=== PATIENT | female | born 1980 | race Caucasian/White ===

== ENCOUNTER 2021-03-19 21:34 | Inpatient (IN) | payer OTHER, SELFPAY ==
[2021-03-19 22:25] VITALS: BP 115/65; PULSE 92; TEMP 36.6
[2021-03-19 23:48] VITALS: BMI 34.4
[2021-03-20 00:14] VITALS: BP 93/59; PULSE 104; RESP 18; TEMP 37; O2SAT 97
--- NOTE | 2021-03-20 01:16 | PC.ADMIT ---
Patient is a woman, 41 years of age transferred from [facility] ED for evaluation. Pt reports experiencing significant anxiety/trauma reactive symptoms. Diagnosis: PTSD. Pt is alert and oriented X4, Covid negative. Pt appears dishevelled, saying that she is homeless. Speech is pressured with normal tone, rhythm and dontae. Pt was anxious and restless through out the admission process. Avoided eye contact. Pt reports concerns about her son being taken from her and placed in a foster care. Pt reports history of trauma but declined to talk about it. Pt expresses hope and said that she wants to become a psychotherapist.
[2021-03-20] MEDS: Acetaminophen 325 MG TABLET 650 MG PO ×2 (06:03→13:48)
[2021-03-20 06:16] VITALS: BP 127/56; PULSE 87; RESP 16; TEMP 36.6; O2SAT 99
[2021-03-20] MEDS: Nicotine Polacrilex 2 MG GUM BUCCAL ×3 (08:35→16:55)
[2021-03-20] MEDS: Levothyroxine Sodium 125 MCG TABLET PO (11:58)
[2021-03-20] MEDS: Omeprazole 20 MG CAPSULE.DR PO (11:58)
[2021-03-20] MEDS: Cyanocobalamin (Vitamin B-12) 1,000 MCG TABLET 1000 MCG PO (11:58)
[2021-03-20] MEDS: Sertraline HCL 100 MG TABLET PO (11:58)
[2021-03-20 13:48] VITALS: BP 117/60; PULSE 100
[2021-03-20] MEDS: cloNIDine HCL 0.1 MG TABLET PO (13:48)
[2021-03-20 16:52] VITALS: BP 115/58; PULSE 102; RESP 18; TEMP 36.2; O2SAT 98
--- NOTE | 2021-03-20 18:01 | P.HPPS_ITS ---
HPI Chief Complaint: PTSD Sources of Information: patient interviewed and chart reviewed HPI Subjective Notes: [place] Warning and Conditional Voluntary Healthcare Proxy: No Guardianship: No Medical Problems Affecting Mental Status: Yes Narrative: 41 yo female, hx of severe PTSD, childhood and adulthood admitted for mgt of anxiety,trauma sx recurrence. Pt is 27 weeks , due 06/05/21 with [facility]. Precipitants include disagreement with DCF during a court appearance recently-accused of delusional sx and stalking. Son, age 5 removed from her care, September 2020 after 39 DCF filings by his principal and pt was admitted for delusional sx. Denies SI or HI. Pt believes she has autism-with positive family history and her son is diagnosed as well. As a result she believes she is misinterpreted in her actions. Past Psychiatric History: IP: 4-5-Usually to [facility] OP: Cathryn OROZCO, psychopharm Ai Deal, psychotherapy Medical Evaluation Reviewed: Yes 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 05/22/09 Trauma History: Affirms-childhood and adulthood Diagnostics Vital Signs (24Hr): Vital Signs - 24 hr 03/19/21 22:25 03/20/21 00:14 03/20/21 06:16 Temperature 97.8 F 98.6 F 97.9 F Pulse Rate 92 104 H 87 Respiratory Rate 18 16 Blood Pressure 115/65 93/59 L 127/56 L Pulse Oximetry 97 99 03/20/21 13:48 03/20/21 16:52 Temperature 97.2 F Pulse Rate 100 102 H Respiratory Rate 18 Blood Pressure 117/60 115/58 L Pulse Oximetry 98 Body Mass Index 34.4 Meds/Allergies Meds Home Medications Acetaminophen (Acetaminophen 325 Mg Tablet) 650 mg PO Q6H PRN PRN Reason: Headache/Pain Mild Scale (1-3) Last Admin: 03/20/21 13:48 Dose: 650 mg Documented by: Al Hydroxide/Mg Hydroxide (Magnesium Hydrox/Alum Hydrox 30 Ml Oral.Susp) 30 ml PO Q6H PRN PRN Reason: Heartburn/Nausea Clonidine HCl (Clonidine Hcl 0.1 Mg Tablet) 0.1 mg PO DAILY PRN; Protocol PRN Reason: Anxiety Last Admin: 03/20/21 13:48 Dose: 0.1 mg Documented by: Cyanocobalamin (Cyanocobalamin (Vitamin B-12) 1,000 Mcg Tablet) 1,000 mcg PO DAILY QING Last Admin: 03/20/21 11:58 Dose: 1,000 mcg Documented by: Ergocalciferol (Ergocalciferol (Vitamin D2) 1,250 Mcg Capsule) 1,250 mcg PO Carrasco QING Levothyroxine Sodium (Levothyroxine Sodium 125 Mcg Tablet) 125 mcg PO DAILY@0630 [facility] Magnesium Hydroxide (Milk Of Magnesia 30 Ml Oral.Susp) 30 ml PO DAILY PRN PRN Reason: Constipation Nicotine Polacrilex (Nicotine Polacrilex 2 Mg Gum) 2 mg BUCCAL Q2H PRN PRN Reason: Nicotine Cravings Last Admin: 03/20/21 16:55 Dose: 2 mg Documented by: Omeprazole (Omeprazole 20 Mg Capsule.Dr) 20 mg PO DAILY@0630 [facility] Vit/Calcium/Iron/Folic Ac ( Vit27,Calcium/Iron/Fa Tablet) 1 tab PO DAILY [facility] Quetiapine Fumarate (Quetiapine Fumarate 25 Mg Tablet) 12.5 mg PO TID PRN PRN Reason: anxiety,agitation Sertraline HCl (Sertraline Hcl 100 Mg Tablet) 100 mg PO DAILY [facility] Trazodone HCl (Trazodone Hcl 50 Mg Tablet) 50 mg PO BEDTIME PRN PRN Reason: Insomnia Allergies Allergies Allergy/AdvReac Type Severity Reaction Status Date / Time sulfamethoxazole Allergy Severe Anaphylaxis Verified 03/19/21 23:47 [From Bactrim] trimethoprim [From Bactrim] Allergy Severe Anaphylaxis Verified 03/19/21 23:47 doxycycline Allergy Gastrointestinal Verified 03/19/21 23:47 Upset Mental Status Exam Mental Status Exam Patient Appearance: Appropriate Patient Orientation: Person, Place, Time and Situation Level of Consciousness: Awake and Alert Patient Behavior: Appropriate, Talkative, Cooperative and Good Eye Contact Mood Description: Depressed, Anxious and Labile Affect Description: Depressed, Anxious and Labile Patient Cognition Impaired: No Ability to Follow Directions: Good Speech Pattern: Spontaneous Speech Memory Description: Intact Hallucinations: None Delusions: Not Present Perceptual Disturbances: Depersonalization and Derealization Thought Process: Goal Oriented Thought Content: positive for [place], positive for Circumstantial and positive for Goal Oriented Depressive Symptoms: Increased Anxiety, Hopelessness, Low Self Esteem, Loss of Energy and Difficulty Concentrating Abnormal Motor Activity Signs and Symptoms: Restlessness Judgement: Good Assessment & Plan Assessment & Plan (1) PTSD (post-traumatic stress disorder): Status: Acute Code(s): F43.10 - Post-traumatic stress disorder, unspecified Assessment and Plan: 41 yo female, 27 weeks , hx of PTSD with recent triggering when in court with DCF. Pt reports sx of anxiety that have not been managable and several psychosocial stressors. Plan: Seroquel 12.5 mg tid prn anxiety Continue other medications. Labs/EKG Collateral contacts Assessment and Plan: as noted above. Patient educated on: medication risk/benefits Informed Consent: understands and further education needed Reason for continued inpatient stay Substantial Risk for: inability to function, rapid decompensation and med/psych decompensation
[2021-03-21 06:00] VITALS: BP 115/58; PULSE 90; TEMP 36.8; O2SAT 97
[2021-03-21] MEDS: Levothyroxine Sodium 125 MCG TABLET PO (06:11)
[2021-03-21] MEDS: Omeprazole 20 MG CAPSULE.DR PO (06:12)
[2021-03-21] MEDS: Nicotine Polacrilex 2 MG GUM BUCCAL ×6 (06:26→21:11)
[2021-03-21] MEDS: Acetaminophen 325 MG TABLET 650 MG PO ×3 (06:59→22:09)
[2021-03-21 07:34] LABS: MANUAL DIFF FLAG NO
[2021-03-21 07:42] LABS: Basophils Percent Auto 0.4 % (0-2); Eosinophils Absolute Auto 0.1 X10*3/uL (0.0-0.4); Eosinophils Percent Auto 1.1 % (0-4); Hematocrit 26.7 % (37-47); Hemoglobin 8.7 g/dl (12.0-16.0); Imm Gran Abs Auto 0.25 X10*3/uL (0.00-0.03); Imm Gran Pct Auto 3.1 % (0.0-0.4); Lymphocytes Absolute Auto 1.4 X10*3/uL (1.2-4.9); Mean Corpuscular HGB Conc 32.6 g/dl (31.0-35.0); Mean Corpuscular Hemoglobin 29.6 pg (27.0-33.0); Mean Corpuscular Volume 90.8 fL (80-98); Mean Platelet Volume 9.5 fL (9.4-12.3); Monocytes Absolute Auto 0.7 X10*3/uL (0.1-1.2); Monocytes Percent Auto 8.9 % (2-11); Neutrophils Absolute Auto 5.4 X10*3/uL (2.0-8.3); Neutrophils Percent Auto 68.5 % (45-73); Platelet Count 182 X10*3/uL (160-400); Red Blood Count 2.94 X10*6/uL (4.20-5.50); Red Cell Distribution Width 13.8 % (11.0-16.0)
[2021-03-21 07:52] LABS: Estimated Average Glucose 97 mg/dL
[2021-03-21 07:59] LABS: Alanine Aminotransferase 15 U/L (0-31); Alkaline Phosphatase 83 U/L (39-117); Anion Gap 11 (12-20); Aspartate Amino Transferase 12 U/L (5-31); Bilirubin Total 0.2 mg/dL (0.0-1.0); Blood Urea Nitrogen 5 mg/dL (9-16); Calcium 8.6 mg/dL (8.4-10.2); Carbon Dioxide 23 mmol/L (22-29); Chloride 112 mmol/L (96-108); Cholesterol 249 mg/dL; Creatinine Clr Calc Pharmacy 126.4; Estimated Glomerular Filt Rate > 60; Glucose Random 96 mg/dL (60-115); HDL Cholesterol 69 mg/dL; LDL Cholesterol Calculated 135 mg/dl; Potassium 3.9 mmol/L (3.3-5.1); Sodium 142 mmol/L (135-145); Total Protein 5.1 g/dL (6.5-8.0); Triglycerides 227 mg/dL
[2021-03-21] MEDS: Cyanocobalamin (Vitamin B-12) 1,000 MCG TABLET 1000 MCG PO (08:51)
[2021-03-21] MEDS: Sertraline HCL 100 MG TABLET PO (08:51)
[2021-03-21 15:59] VITALS: BP 107/62; PULSE 103
[2021-03-21] MEDS: cloNIDine HCL 0.1 MG TABLET PO (15:59)
[2021-03-21 16:00] VITALS: BP 107/62; PULSE 103; RESP 16; TEMP 36.2; O2SAT 98
--- NOTE | 2021-03-21 16:08 | PM.EVENT ---
Event Note Date of Service: 03/21/21 Event Note: Attempted to meet with patient for medical consult. patient declined evaluation at this time.
--- NOTE | 2021-03-21 18:47 | HO.PSYCHPN ---
Subjective Subjective Date of Service: 03/21/21 Reason For Visit: PTSD Subjective Notes: Conditional Voluntary Healthcare Proxy: No Guardianship: No Medical Problems Affecting Mental Status: No Interim History: Pt agreed to meet but was resting and napping most of the day so we did not meet formally. Reported difficult with gluten free choices for Celiac Disease and -discussed with dietary. Nutrition eval requested. Pt finding Seroquel/Clonidine helpful for anxiety. Requested PT eval for ambulation as she uses a cane at times. Medication Compliance: Yes Side effects from medications: No Attending Groups: No Review of Systems Acute medical concerns: Yes 27 weeks Medical Review of Systems: unchanged Review of Systems Psychiatric: Reports anxiety and Reports depression Mental Status Exam Mental Status Exam Patient Appearance: Appropriate Patient Orientation: Person, Place, Time and Situation Level of Consciousness: Awake and Alert Patient Behavior: Appropriate, Talkative, Cooperative and Good Eye Contact Mood Description: Depressed, Anxious and Labile Affect Description: Depressed, Anxious and Labile Patient Cognition Impaired: No Ability to Follow Directions: Good Speech Pattern: Spontaneous Speech Memory Description: Intact Hallucinations: None Delusions: Not Present Perceptual Disturbances: Depersonalization and Derealization Thought Process: Goal Oriented Thought Content: positive for [place], positive for Circumstantial and positive for Goal Oriented Depressive Symptoms: Increased Anxiety, Hopelessness, Low Self Esteem, Loss of Energy and Difficulty Concentrating Abnormal Motor Activity Signs and Symptoms: Restlessness Judgement: Good Diagnostics Vital Signs (24Hr): Vital Signs - 24 hr 03/21/21 06:00 03/21/21 15:59 Temperature 98.2 F Pulse Rate 90 103 H Blood Pressure 115/58 L 107/62 Pulse Oximetry 97 Body Mass Index 34.4 Labs Results: 03/21/21 07:17 03/21/21 07:17 Labs: Laboratory Results - last 48 hr 03/21/21 03/21/21 03/21/21 07:17 07:17 07:17 WBC 8.0 RBC 2.94 L Hgb 8.7 L Hct 26.7 L MCV 90.8 MCH 29.6 MCHC 32.6 RDW 13.8 Plt Count 182 MPV 9.5 Immature Gran % (Auto) 3.1 H Neut % (Auto) 68.5 Lymph % (Auto) 18.0 L [place] % (Auto) 8.9 Eos % (Auto) 1.1 Baso % (Auto) 0.4 Lymph # (Auto) 1.4 [place] # (Auto) 0.7 Eos # (Auto) 0.1 Baso # (Auto) 0.0 Abs Immat Gran (auto) 0.25 H Absolute Neuts (auto) 5.4 Absolute Nucleated RBC 0.000 Nucleated RBC % (auto) 0.0 Sodium 142 Potassium 3.9 Chloride 112 H Carbon Dioxide 23 Anion Gap 11 L BUN 5 L Creatinine 0.61 Estim Creat Clear Calc 126.4 Estimated GFR > 60 Random Glucose 96 Estimat Average Glucose 97 Hemoglobin A1c % 5.0 Calcium 8.6 Total Bilirubin 0.2 AST 12 ALT 15 Alkaline Phosphatase 83 Total Protein 5.1 L Albumin 3.0 L Triglycerides 227 Cholesterol 249 LDL Cholesterol, Calc 135 HDL Cholesterol 69 25-OH Vitamin D Total 11.0 TSH 2.50 Medications Medications Current Medications Generic Name Dose Route Start Last Admin Trade Name Freq PRN Reason Stop Dose Admin Acetaminophen 650 mg 03/19/21 23:57 03/21/21 15:59 Acetaminophen 325 Mg Tablet PO 650 mg Q6H PRN Administration Headache/Pain Mild Scale (1-3) Al Hydroxide/Mg Hydroxide 30 ml 03/19/21 23:57 Magnesium Hydrox/Alum Hydrox 30 Ml Oral.Susp PO Q6H PRN Heartburn/Nausea Clonidine HCl 0.1 mg 03/20/21 10:21 03/21/21 15:59 Clonidine Hcl 0.1 Mg Tablet PO 0.1 mg DAILY PRN Administration Anxiety Protocol Cyanocobalamin 1,000 mcg 03/20/21 10:30 03/21/21 08:51 Cyanocobalamin (Vitamin B-12) 1,000 Mcg Tablet PO 1,000 mcg DAILY QING Administration Ergocalciferol 1,250 mcg 03/22/21 09:00 Ergocalciferol (Vitamin D2) 1,250 Mcg Capsule PO Carrasco QING Levothyroxine Sodium 125 mcg 03/21/21 06:30 03/21/21 06:11 Levothyroxine Sodium 125 Mcg Tablet PO 125 mcg DAILY@0630 QING Administration Magnesium Hydroxide 30 ml 03/19/21 23:57 Milk Of Magnesia 30 Ml Oral.Susp PO DAILY PRN Constipation Nicotine Polacrilex 2 mg 03/20/21 05:48 03/21/21 17:43 Nicotine Polacrilex 2 Mg Gum BUCCAL 2 mg Q2H PRN Administration Nicotine Cravings Omeprazole 20 mg 03/21/21 06:30 03/21/21 06:12 Omeprazole 20 Mg Capsule. PO 20 mg DAILY@0630 QNIG Administration Vit/Calcium/Iron/Folic Ac 1 tab 03/21/21 09:00 03/21/21 08:51 Vit27,Calcium/Iron/Fa Tablet PO 1 tab DAILY QING Administration Quetiapine Fumarate 12.5 mg 03/20/21 17:05 Quetiapine Fumarate 25 Mg Tablet PO TID PRN anxiety,agitation Sertraline HCl 100 mg 03/21/21 09:00 03/21/21 08:51 Sertraline Hcl 100 Mg Tablet PO 100 mg DAILY QING Administration Trazodone HCl 50 mg 03/19/21 23:57 Trazodone Hcl 50 Mg Tablet PO BEDTIME PRN Insomnia Allergies Allergies Allergy/AdvReac Type Severity Reaction Status Date / Time sulfamethoxazole Allergy Severe Anaphylaxis Verified 03/19/21 23:47 [From Bactrim] trimethoprim [From Bactrim] Allergy Severe Anaphylaxis Verified 03/19/21 23:47 doxycycline Allergy Gastrointestinal Verified 03/19/21 23:47 Upset Assessment & Plan Assessment & Plan (1) PTSD (post-traumatic stress disorder): Status: Acute Code(s): F43.10 - Post-traumatic stress disorder, unspecified Assessment and Plan: 41 yo female, 27 weeks , Celiac Disease, hx of PTSD with recent triggering when in court with DCF. Pt reports sx of anxiety that have not been managable and several psychosocial stressors. Plan: Seroquel 12.5 mg tid prn anxiety Continue other medications. Pt refused hospitalist consult-anemic, will follow. Collateral contacts Assessment and Plan: as noted above. Greater than 50% of the session was spent on counseling and/or coordination of care Informed Consent: understands Reason for contiued inpatient stay Substantial Risk for: inability to function and rapid decompensation
[2021-03-22 06:00] VITALS: BP 96/52; PULSE 83; RESP 16; TEMP 36.1; O2SAT 99
[2021-03-22] MEDS: Acetaminophen 325 MG TABLET 650 MG PO ×3 (06:21→20:49)
[2021-03-22] MEDS: Levothyroxine Sodium 125 MCG TABLET PO (06:21)
[2021-03-22] MEDS: Omeprazole 20 MG CAPSULE.DR PO (06:22)
[2021-03-22] MEDS: Nicotine Polacrilex 2 MG GUM BUCCAL ×7 (06:22→20:10)
[2021-03-22] MEDS: Cyanocobalamin (Vitamin B-12) 1,000 MCG TABLET 1000 MCG PO (08:33)
[2021-03-22] MEDS: Sertraline HCL 100 MG TABLET PO (08:33)
[2021-03-22] MEDS: Ergocalciferol (Vitamin D2) 1,250 MCG CAPSULE 1250 MCG PO (08:36)
[2021-03-22] MEDS: Lidocaine 4 % Patch ADH..PATCH 1 PATCH TRANSDERMA (10:42)
[2021-03-22 14:42] VITALS: BP 108/62; PULSE 92
[2021-03-22] MEDS: cloNIDine HCL 0.1 MG TABLET PO (14:42)
[2021-03-22 16:56] VITALS: BP 99/54; PULSE 82; RESP 16; TEMP 36.5; O2SAT 98
--- NOTE | 2021-03-22 17:46 | P.PNPSI_ITS ---
Subjective Subjective Date of Service: 03/22/21 Reason For Visit: PTSD Interim History: Review of diagnostics, meds, dietary issues. Pt reports feeling tired-anemia noted. Medication Compliance: Yes Side effects from medications: No Attending Groups: Intermittent Review of Systems Acute medical concerns: No Medical Review of Systems: unchanged Review of Systems Psychiatric: Reports anxiety and Reports depression Mental Status Exam Mental Status Exam Patient Appearance: Appropriate Patient Orientation: Person, Place, Time and Situation Level of Consciousness: Awake and Alert Patient Behavior: Appropriate, Talkative, Cooperative and Good Eye Contact Mood Description: Depressed, Anxious and Labile Affect Description: Depressed, Anxious and Labile Patient Cognition Impaired: No Ability to Follow Directions: Good Speech Pattern: Spontaneous Speech Memory Description: Intact Hallucinations: None Delusions: Not Present Perceptual Disturbances: Depersonalization and Derealization Thought Process: Goal Oriented Thought Content: positive for [place], positive for Circumstantial and positive for Goal Oriented Depressive Symptoms: Increased Anxiety, Hopelessness, Low Self Esteem, Loss of Energy and Difficulty Concentrating Abnormal Motor Activity Signs and Symptoms: Restlessness Judgement: Good Diagnostics Vital Signs (24Hr): Vital Signs - 24 hr 03/22/21 06:00 03/22/21 14:42 03/22/21 16:56 Temperature 97 F 97.7 F Pulse Rate 83 92 82 Respiratory Rate 16 16 Blood Pressure 96/52 L 108/62 99/54 L Pulse Oximetry 99 98 Body Mass Index 34.4 Labs Results: 03/21/21 07:17 03/21/21 07:17 Labs: Laboratory Results - last 48 hr 03/21/21 03/21/21 03/21/21 07:17 07:17 07:17 WBC 8.0 RBC 2.94 L Hgb 8.7 L Hct 26.7 L MCV 90.8 MCH 29.6 MCHC 32.6 RDW 13.8 Plt Count 182 MPV 9.5 Immature Gran % (Auto) 3.1 H Neut % (Auto) 68.5 Lymph % (Auto) 18.0 L [place] % (Auto) 8.9 Eos % (Auto) 1.1 Baso % (Auto) 0.4 Lymph # (Auto) 1.4 [place] # (Auto) 0.7 Eos # (Auto) 0.1 Baso # (Auto) 0.0 Abs Immat Gran (auto) 0.25 H Absolute Neuts (auto) 5.4 Absolute Nucleated RBC 0.000 Nucleated RBC % (auto) 0.0 Sodium 142 Potassium 3.9 Chloride 112 H Carbon Dioxide 23 Anion Gap 11 L BUN 5 L Creatinine 0.61 Estim Creat Clear Calc 126.4 Estimated GFR > 60 Random Glucose 96 Estimat Average Glucose 97 Hemoglobin A1c % 5.0 Calcium 8.6 Total Bilirubin 0.2 AST 12 ALT 15 Alkaline Phosphatase 83 Total Protein 5.1 L Albumin 3.0 L Triglycerides 227 Cholesterol 249 LDL Cholesterol, Calc 135 HDL Cholesterol 69 25-OH Vitamin D Total 11.0 TSH 2.50 Medications Medications Current Medications Generic Name Dose Route Start Last Admin Trade Name Freq PRN Reason Stop Dose Admin Acetaminophen 650 mg 03/19/21 23:57 03/22/21 14:42 Acetaminophen 325 Mg Tablet PO 650 mg Q6H PRN Administration Headache/Pain Mild Scale (1-3) Al Hydroxide/Mg Hydroxide 30 ml 03/19/21 23:57 Magnesium Hydrox/Alum Hydrox 30 Ml Oral.Susp PO Q6H PRN Heartburn/Nausea Clonidine HCl 0.1 mg 03/20/21 10:21 03/22/21 14:42 Clonidine Hcl 0.1 Mg Tablet PO 0.1 mg DAILY PRN Administration Anxiety Protocol Cyanocobalamin 1,000 mcg 03/20/21 10:30 03/22/21 08:33 Cyanocobalamin (Vitamin B-12) 1,000 Mcg Tablet PO 1,000 mcg DAILY QING Administration Diphenhydramine HCl 50 mg 03/22/21 22:00 Diphenhydramine Hcl 25 Mg Tablet PO 2200 [facility] Ergocalciferol 1,250 mcg 03/22/21 09:00 03/22/21 08:36 Ergocalciferol (Vitamin D2) 1,250 Mcg Capsule PO 1,250 mcg Carrasco QING Administration Levothyroxine Sodium 125 mcg 03/21/21 06:30 03/22/21 06:21 Levothyroxine Sodium 125 Mcg Tablet PO 125 mcg DAILY@0630 [facility] Administration Lidocaine 1 patch 03/22/21 09:39 03/22/21 10:42 Lidocaine 4 % Patch Adh..Patch TRANSDERMA 1 patch DAILY PRN Administration back pain Protocol Magnesium Hydroxide 30 ml 03/19/21 23:57 Milk Of Magnesia 30 Ml Oral.Susp PO DAILY PRN Constipation Melatonin 3 mg 03/22/21 22:00 Melatonin 3 Mg Tablet PO 2200 [facility] Nicotine Polacrilex 2 mg 03/20/21 05:48 03/22/21 15:58 Nicotine Polacrilex 2 Mg Gum BUCCAL 2 mg Q2H PRN Administration Nicotine Cravings Omeprazole 20 mg 03/21/21 06:30 03/22/21 06:22 Omeprazole 20 Mg Capsule. PO 20 mg DAILY@0630 [facility] Administration Vit/Calcium/Iron/Folic Ac 1 tab 03/21/21 09:00 03/22/21 08:33 Vit27,Calcium/Iron/Fa Tablet PO 1 tab DAILY QING Administration Quetiapine Fumarate 12.5 mg 03/20/21 17:05 Quetiapine Fumarate 25 Mg Tablet PO TID PRN anxiety,agitation Sertraline HCl 100 mg 03/21/21 09:00 03/22/21 08:33 Sertraline Hcl 100 Mg Tablet PO 100 mg DAILY QING Administration Trazodone HCl 50 mg 03/19/21 23:57 Trazodone Hcl 50 Mg Tablet PO BEDTIME PRN Insomnia Allergies Allergies Allergy/AdvReac Type Severity Reaction Status Date / Time sulfamethoxazole Allergy Severe Anaphylaxis Verified 03/19/21 23:47 [From Bactrim] trimethoprim [From Bactrim] Allergy Severe Anaphylaxis Verified 03/19/21 23:47 doxycycline Allergy Gastrointestinal Verified 03/19/21 23:47 Upset Assessment & Plan Assessment & Plan (1) PTSD (post-traumatic stress disorder): Status: Acute Code(s): F43.10 - Post-traumatic stress disorder, unspecified Assessment and Plan: 41 yo female, 27 weeks , Celiac Disease, hx of PTSD with recent triggering when in court with DCF. Pt reports sx of anxiety that have not been managable and several psychosocial stressors. Plan: Continue current plan. Assessment and Plan: as noted above. Greater than 50% of the session was spent on counseling and/or coordination of care Reason for contiued inpatient stay Substantial Risk for: inability to function and rapid decompensation
[2021-03-22] MEDS: Magnesium Hydrox/Alum Hydrox 30 ML ORAL.SUSP PO (20:09)
[2021-03-22] MEDS: diphenhydrAMINE HCL 25 MG TABLET 50 MG PO (20:09)
[2021-03-22] MEDS: Melatonin 3 MG TABLET PO (20:10)
--- NOTE | 2021-03-23 | ECG_ITS ---
Test Reason : , MEDS Blood Pressure : / mmHG Vent. Rate : 074 BPM Atrial Rate : 074 BPM P-R Int : 144 ms QRS Dur : 074 ms QT Int : 358 ms P-R-T Axes : 060 067 062 degrees QTc Int : 397 ms Normal sinus rhythm Normal ECG No previous ECGs available Referred By: Skyla Bentley Electronically Signed By:VALERIY DONNELLY
[2021-03-23] MEDS: Levothyroxine Sodium 125 MCG TABLET PO (04:49)
[2021-03-23] MEDS: Nicotine Polacrilex 2 MG GUM BUCCAL ×7 (04:49→21:05)
[2021-03-23] MEDS: Omeprazole 20 MG CAPSULE.DR PO (04:50)
[2021-03-23 06:00] VITALS: BP 110/61; PULSE 82; RESP 18; TEMP 36; O2SAT 98
[2021-03-23] MEDS: Sertraline HCL 100 MG TABLET PO (08:17)
[2021-03-23] MEDS: Cyanocobalamin (Vitamin B-12) 1,000 MCG TABLET 1000 MCG PO (08:17)
[2021-03-23 08:31] LABS: Folate 8.5 ng/mL (> or = 4.0); Vitamin B12 281 pg/mL (200-900)
[2021-03-23] MEDS: Acetaminophen 325 MG TABLET 650 MG PO ×3 (09:04→21:04)
--- NOTE | 2021-03-23 11:24 | P.CONOB_ITS ---
OB Consult Note - HPI Data Service Date: 03/23/21 Requesting Physician: Skyla Bentley Primary Care Provider: Unknown Physician Narrative I was consulted regarding Lauren Lofton co is a 41 year old female was admitted under Psychiatry care for PTSD. The patient is at 29 weeks and 3 days of gestation today, under the care at [facility]. Last visit was 4 weeks ago, the patient missed her last appointment last week during her admission. The patient is doing well with no complaints, no contractions, leakage of fluid or bleeding. Good movement on vitamin 1 tablet p.o. q.d. the patient was started on baby aspirin early , was followed up with cervical length because of her history of delivery at 23 weeks, according to the patient cervical X has been within normal, no records available. Hematocrit done on admission was 26.7. records and labs are not available but according the patient has been normal. 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 - Review of Systems Review of Systems ROS Unobtainable: All systems reviewed & are unremarkable except as noted in HPI and below OB PMFSH Past Medical History Medical History (Updated 03/23/21 @ 11:30 by Jason Mijares MD) PTSD (post-traumatic stress disorder) Social History Social History Household Members: None Housing: Homeless Do you presently have visiting nurse or other home services: No Patient Tobacco Use Status: Former Tobacco user Tobacco use type: Smokeless Tobacco Years Smoked: 1 Smoked in Last 30 Days: Yes e-Cigarette/Vaping Use: Currently Using Frequency of e-Cigarette/Vaping Use: pt. states a lot Patient Interested in Nicotine Replacement: Yes Patient Given Instructions on How to Stop Smoking: Yes Date Education Initiated: 03/20/21 Second Hand Smoke Exposure: No Use of substances other than those prescribed or required for medical reasons: No Substance Use Type: Opiates Substance Use Type Other:: Pt states she quit using opioids 11yrs ago. Last Used Substance Other:: 11yrs ago Currently Displaying Signs/Symptoms of Drug Intoxication Withdrawal: No Any prior treatment program specific to substance use: Yes Have you been hit, kicked, punched, or otherwise hurt by someone within the past year? If so, by whom?: No Do you feel safe in your current relationship?: No Is there a partner from a previous relationship who is making you feel unsafe now?: No Are you made to feel afraid or neglected: No Spiritual Healthcare Practices: Presybeterian and I need to meditate Taoist Healthcare Practices: meditation Cultural Healthcare Practices: N/A Advance Directives: No Advance Directives Information Provided: No Advance Directives on File: No Do you have thoughts of harming others: None Do you have a plan to hurt others: No Plan Recently lost weight without trying: No How much weight loss: Not applicable Eating poorly because of decreased appetite: No Nutrition screen score: 0 Nutrition Risks: No Nutritional Risk Patient : Yes : No Poor oral hygiene: No service: No Sexual orientation: Bisexual Meds Allergies Allergy/AdvReac Type Severity Reaction Status Date / Time sulfamethoxazole Allergy Severe Anaphylaxis Verified 03/19/21 23:47 [From Bactrim] trimethoprim [From Bactrim] Allergy Severe Anaphylaxis Verified 03/19/21 23:47 doxycycline Allergy Gastrointestinal Verified 03/19/21 23:47 Upset Active Medications: Current Medications Generic Name Dose Route Start Last Admin Trade Name Freq PRN Reason Stop Dose Admin Acetaminophen 650 mg 03/19/21 23:57 03/23/21 09:04 Acetaminophen 325 Mg Tablet PO 650 mg Q6H PRN Administration Headache/Pain Mild Scale (1-3) Al Hydroxide/Mg Hydroxide 30 ml 03/19/21 23:57 03/22/21 20:09 Magnesium Hydrox/Alum Hydrox 30 Ml Oral.Susp PO 30 ml Q6H PRN Administration Heartburn/Nausea Clonidine HCl 0.1 mg 03/20/21 10:21 03/22/21 14:42 Clonidine Hcl 0.1 Mg Tablet PO 0.1 mg DAILY PRN Administration Anxiety Protocol Cyanocobalamin 1,000 mcg 03/20/21 10:30 03/23/21 08:17 Cyanocobalamin (Vitamin B-12) 1,000 Mcg Tablet PO 1,000 mcg DAILY QING Administration Diphenhydramine HCl 50 mg 03/22/21 22:00 03/22/21 20:09 Diphenhydramine Hcl 25 Mg Tablet PO 50 mg 2200 QING Administration Ergocalciferol 1,250 mcg 03/22/21 09:00 03/22/21 08:36 Ergocalciferol (Vitamin D2) 1,250 Mcg Capsule PO 1,250 mcg Carrasco QING Administration Levothyroxine Sodium 125 mcg 03/21/21 06:30 03/23/21 04:49 Levothyroxine Sodium 125 Mcg Tablet PO 125 mcg DAILY@0630 QING Administration Lidocaine 1 patch 03/22/21 09:39 03/22/21 10:42 Lidocaine 4 % Patch Adh..Patch TRANSDERMA 1 patch DAILY PRN Administration back pain Protocol Magnesium Hydroxide 30 ml 03/19/21 23:57 Milk Of Magnesia 30 Ml Oral.Susp PO DAILY PRN Constipation Melatonin 3 mg 03/22/21 22:00 03/22/21 20:10 Melatonin 3 Mg Tablet PO 3 mg 2200 QING Administration Nicotine Polacrilex 2 mg 03/20/21 05:48 03/23/21 09:04 Nicotine Polacrilex 2 Mg Gum BUCCAL 2 mg Q2H PRN Administration Nicotine Cravings Omeprazole 20 mg 03/21/21 06:30 03/23/21 04:50 Omeprazole 20 Mg Capsule. PO 20 mg DAILY@0630 [facility] Administration Vit/Calcium/Iron/Folic Ac 1 tab 03/21/21 09:00 03/23/21 08:17 Vit27,Calcium/Iron/Fa Tablet PO 1 tab DAILY QING Administration Quetiapine Fumarate 12.5 mg 03/20/21 17:05 Quetiapine Fumarate 25 Mg Tablet PO TID PRN anxiety,agitation Sertraline HCl 100 mg 03/21/21 09:00 03/23/21 08:17 Sertraline Hcl 100 Mg Tablet PO 100 mg DAILY QING Administration Trazodone HCl 50 mg 03/19/21 23:57 Trazodone Hcl 50 Mg Tablet PO BEDTIME PRN Insomnia Home Medications Medication Instructions Recorded Confirmed Last Taken Type clonidine HCl 0.1 mg tablet 1 tab PO DAILY PRN 03/20/21 03/20/21 Unknown History cyanocobalamin (vitamin B-12) 1 tab PO DAILY 03/20/21 03/20/21 Unknown History 1,000 mcg tablet ergocalciferol (vitamin D2) 1,250 1 cap PO QWEEK 03/20/21 03/20/21 Unknown History mcg (50,000 unit) capsule folic acid 1 mg tablet 1 tab PO DAILY 03/20/21 03/20/21 Unknown History levothyroxine 125 mcg tablet 1 tab PO DAILY 03/20/21 03/20/21 Unknown History melatonin 3 mg tablet 3 tab PO BEDTIME 03/20/21 03/23/21 Unknown History nicotine (polacrilex) 2 mg gum 2 mg PO NEEDED PRN 03/20/21 03/23/21 Unknown History nystatin 100,000 unit/gram topical 1 unit TOPICAL BID 03/20/21 03/23/21 Unknown History powder omeprazole 20 mg capsule,delayed 1 cap PO DAILY 03/20/21 03/20/21 Unknown History release vits no.126-ferrous fum 1 tab PO DAILY 03/20/21 03/20/21 Unknown History 28 mg iron-folic acid 800 mcg tablet (Classic ) riboflavin (vitamin B2) 100 mg 2 tab PO BID 03/20/21 03/20/21 Unknown History tablet (Vitamin B-2) sertraline 100 mg tablet 1 tab PO DAILY 03/20/21 03/20/21 Unknown History OB Physical Exam Evaluation Gestational Age: Height of fundus 30 cm, positive heart rate 150 beats per minute, nontender abdominal exam OB Consult Results Labs CBC & Chem 7: 03/21/21 07:17 03/21/21 07:17 OB - CN: A/P Assessment and Plan (1) PTSD (post-traumatic stress disorder): Status: Acute (2) : Status: Acute Assessment and Plan: -Baby aspirin to be restarted 61 mg p.o. q.d. -The patient is due for her 3rd trimester labs which includes 1 hour glucose tolerance test, RPR and CBC , but the patient would like to wait till she is discharged fto have those tests done at her OB office. If the patient will have a prolonged stay at an inpatient please let me know to order those tests as an patient. -Check blood type if negative needs antibody screen if negative RhoGAM 300 millicg IM. - labor warnings given to patient, she is to let the RNs no in case of contractions more than 6 an hour, any leakage of fluid or bleeding or decreased movement -Stay on vitamin 1 tablet p.o. q.d. -Discussed with the patient that use of SSRIs in has been shown in certain few studies the potential for a small increased risk of cardiovascular defects; anomalies include such as small ventricular septal defects. Certain SSRIs appear to be associated with little to no risk for spontaneous , an increased risk of hypertension of , bleeding, including hemorrhage and a small reduction in gestational age at , reduced scores but the clinical significance is not clear; However, SSRIs are not associated with an elevated risk of . Several reviews have found that in most studies, early exposure to Sertraline was not associated with major congenital abnormalities overall, nor with cardiovascular malformations in particular, Sertraline does not appear to be associated with any major complications, except for hemorrhage. (3) Anemia: Status: Acute Assessment and Plan: Recommend the patient to be started on iron sulfate 325 mg p.o. b.i.d.
--- NOTE | 2021-03-23 13:53 | MHC.CLN ---
NUTRITION CONSULT CONSULT FOR MENU CHOICES WITH GLUTEN FREE DIET. PATIENT IS 27 WEEKS AND FOLLOWS GLUTEN FREE DIET DUE TO CELIAC. VERY KNOWLEDGEABLE ABOUT FOODS NOT APPROPRIATE ON DIET. GAVE COPY OF MENU AND ADDITIONAL LIST OF FOODS AVAILABLE THAT ARE GLUTEN FREE. DISCUSSED ORDERING YOGURT AND/OR COTTAGE CHEESE FOR EXTRA PROTEIN AND CALCIUM. 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 RD AVAILABLE NEEDED BY CONSULT.
[2021-03-23 14:14] VITALS: BP 110/61; PULSE 82; O2SAT 98
--- NOTE | 2021-03-23 14:20 | HO.PSYCHPN ---
Subjective Subjective Date of Service: 03/23/21 Reason For Visit: PTSD Subjective Notes: Conditional Voluntary Healthcare Proxy: No Guardianship: No Medical Problems Affecting Mental Status: Yes Interim History: Pt seen for OB Consultation which is appreciated. Initiated FeSO4, ASA. Pt asks to wait to return to her OB for updated GTT, RPR, CBCD. Reports feeling tired today. 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 Making housing plans as she is homeless currently. Federal parking regulation enforcement officer has been in contact with pt's social studies teacher. Discussed medications-refuses any atypicals in favor of ther agents. Medication Compliance: Yes Side effects from medications: No Attending Groups: No Review of Systems Acute medical concerns: No Pt seen by Dr. Mijares today. Medical Review of Systems: unchanged Review of Systems Reports behavioral changes Psychiatric: Reports abnormal sleep pattern, Reports anxiety, Reports behavioral changes, Reports depression, Reports anhedonia and Reports suicidal ideation (denies) Mental Status Exam Mental Status Exam Patient Appearance: Appropriate Patient Orientation: Person, Place, Time and Situation Level of Consciousness: Awake and Alert Patient Behavior: Appropriate, Talkative, Cooperative and Good Eye Contact Mood Description: Depressed, Anxious and Labile Affect Description: Depressed, Anxious and Labile Patient Cognition Impaired: No Ability to Follow Directions: Good Speech Pattern: Spontaneous Speech Memory Description: Intact Hallucinations: None Delusions: Not Present Perceptual Disturbances: Depersonalization and Derealization Thought Process: Goal Oriented Thought Content: positive for [place], positive for Circumstantial and positive for Goal Oriented Depressive Symptoms: Increased Anxiety, Hopelessness, Low Self Esteem, Loss of Energy and Difficulty Concentrating Abnormal Motor Activity Signs and Symptoms: Restlessness Judgement: Good Diagnostics Vital Signs (24Hr): Vital Signs - 24 hr 03/22/21 14:42 03/22/21 16:56 03/23/21 06:00 Temperature 97.7 F 96.8 F Pulse Rate 92 82 82 Respiratory Rate 16 18 Blood Pressure 108/62 99/54 L 110/61 Pulse Oximetry 98 98 Body Mass Index 34.4 Labs Results: 03/21/21 07:17 03/21/21 07:17 Labs: Laboratory Results - last 48 hr 03/21/21 03/23/21 07:17 12:43 Vitamin B12 281 Folate 8.5 Antibody Titer TNP Medications Medications Current Medications Generic Name Dose Route Start Last Admin Trade Name Freq PRN Reason Stop Dose Admin Acetaminophen 650 mg 03/19/21 23:57 03/23/21 09:04 Acetaminophen 325 Mg Tablet PO 650 mg Q6H PRN Administration Headache/Pain Mild Scale (1-3) Al Hydroxide/Mg Hydroxide 30 ml 03/19/21 23:57 03/22/21 20:09 Magnesium Hydrox/Alum Hydrox 30 Ml Oral.Susp PO 30 ml Q6H PRN Administration Heartburn/Nausea Aspirin 81 mg 03/24/21 09:00 Aspirin 81 Mg Tab.Chew PO DAILY QING Clonidine HCl 0.1 mg 03/20/21 10:21 03/22/21 14:42 Clonidine Hcl 0.1 Mg Tablet PO 0.1 mg DAILY PRN Administration Anxiety Protocol Cyanocobalamin 1,000 mcg 03/20/21 10:30 03/23/21 08:17 Cyanocobalamin (Vitamin B-12) 1,000 Mcg Tablet PO 1,000 mcg DAILY QING Administration Diphenhydramine HCl 50 mg 03/22/21 22:00 03/22/21 20:09 Diphenhydramine Hcl 25 Mg Tablet PO 50 mg 2200 QING Administration Docusate Sodium 100 mg 03/23/21 21:00 Docusate Sodium 100 Mg Capsule PO BID QING Ergocalciferol 1,250 mcg 03/22/21 09:00 03/22/21 08:36 Ergocalciferol (Vitamin D2) 1,250 Mcg Capsule PO 1,250 mcg Carrasco QING Administration Ferrous Sulfate 324 mg 03/23/21 17:00 Ferrous Sulfate 324 Mg Tablet. PO BIDWM QING Levothyroxine Sodium 125 mcg 03/21/21 06:30 03/23/21 04:49 Levothyroxine Sodium 125 Mcg Tablet PO 125 mcg DAILY@0630 QING Administration Lidocaine 1 patch 03/22/21 09:39 03/22/21 10:42 Lidocaine 4 % Patch Adh..Patch TRANSDERMA 1 patch DAILY PRN Administration back pain Protocol Magnesium Hydroxide 30 ml 03/19/21 23:57 Milk Of Magnesia 30 Ml Oral.Susp PO DAILY PRN Constipation Melatonin 3 mg 03/22/21 22:00 03/22/21 20:10 Melatonin 3 Mg Tablet PO 3 mg 2200 QING Administration Nicotine Polacrilex 2 mg 03/20/21 05:48 03/23/21 13:09 Nicotine Polacrilex 2 Mg Gum BUCCAL 2 mg Q2H PRN Administration Nicotine Cravings Omeprazole 20 mg 03/21/21 06:30 03/23/21 04:50 Omeprazole 20 Mg Capsule. PO 20 mg DAILY@0630 QING Administration Vit/Calcium/Iron/Folic Ac 1 tab 03/21/21 09:00 03/23/21 08:17 Vit27,Calcium/Iron/Fa Tablet PO 1 tab DAILY QING Administration Quetiapine Fumarate 12.5 mg 03/20/21 17:05 Quetiapine Fumarate 25 Mg Tablet PO TID PRN anxiety,agitation Sertraline HCl 100 mg 03/21/21 09:00 03/23/21 08:17 Sertraline Hcl 100 Mg Tablet PO 100 mg DAILY QING Administration Trazodone HCl 50 mg 03/19/21 23:57 Trazodone Hcl 50 Mg Tablet PO BEDTIME PRN Insomnia Allergies Allergies Allergy/AdvReac Type Severity Reaction Status Date / Time sulfamethoxazole Allergy Severe Anaphylaxis Verified 03/19/21 23:47 [From Bactrim] trimethoprim [From Bactrim] Allergy Severe Anaphylaxis Verified 03/19/21 23:47 doxycycline Allergy Gastrointestinal Verified 03/19/21 23:47 Upset Assessment & Plan Assessment & Plan (1) PTSD (post-traumatic stress disorder): Status: Acute Code(s): F43.10 - Post-traumatic stress disorder, unspecified Assessment and Plan: 41 yo female, 27 weeks , Celiac Disease, hx of PTSD with recent triggering when in court with DCF. Pt reports sx of anxiety that have not been managable and several psychosocial stressors. Plan: Continue current plan. OB consult completed and appreciated. Collateral contact Discharge planning. (2) : Status: Acute Code(s): Z34.90 - Encounter for supervision of normal , unspecified, unspecified trimester (3) Anemia: Status: Acute Code(s): D64.9 - Anemia, unspecified Assessment and Plan: as noted above. Greater than 50% of the session was spent on counseling and/or coordination of care Reason for contiued inpatient stay Substantial Risk for: inability to function and rapid decompensation
[2021-03-23] MEDS: Ferrous Sulfate 324 MG TABLET.DR PO (16:45)
[2021-03-23 18:00] VITALS: BP 97/50; PULSE 73; RESP 16; TEMP 36.5; O2SAT 99
[2021-03-23] MEDS: Docusate Sodium 100 MG CAPSULE PO (21:04)
[2021-03-23] MEDS: Melatonin 3 MG TABLET PO (21:05)
[2021-03-23] MEDS: diphenhydrAMINE HCL 25 MG TABLET 50 MG PO (21:05)
[2021-03-24 06:00] VITALS: BP 91/54; PULSE 79; RESP 16; TEMP 35.8; O2SAT 98
[2021-03-24] MEDS: Levothyroxine Sodium 125 MCG TABLET PO (06:21)
[2021-03-24] MEDS: Omeprazole 20 MG CAPSULE.DR PO (06:21)
[2021-03-24] MEDS: Ferrous Sulfate 324 MG TABLET.DR PO ×2 (08:37→15:59)
[2021-03-24] MEDS: Docusate Sodium 100 MG CAPSULE PO ×2 (08:37→20:27)
[2021-03-24] MEDS: Sertraline HCL 100 MG TABLET PO (08:38)
[2021-03-24] MEDS: Aspirin 81 MG TAB.CHEW PO (08:38)
[2021-03-24] MEDS: Acetaminophen 325 MG TABLET 650 MG PO ×2 (08:39→19:11)
[2021-03-24] MEDS: Nicotine Polacrilex 2 MG GUM BUCCAL ×5 (08:39→19:12)
[2021-03-24] MEDS: Lidocaine 4 % Patch ADH..PATCH 1 PATCH TRANSDERMA (08:40)
[2021-03-24] MEDS: Cyanocobalamin (Vitamin B-12) 1,000 MCG TABLET 1000 MCG PO (08:44)
[2021-03-24] MEDS: QUEtiapine Fumarate 25 MG TABLET 12.5 MG PO ×2 (11:09→20:26)
[2021-03-24 16:30] VITALS: BP 104/54; PULSE 90; TEMP 36.3
--- NOTE | 2021-03-24 16:45 | HO.PSYCHPN ---
Subjective Subjective Date of Service: 03/24/21 Reason For Visit: PTSD Subjective Notes: Conditional Voluntary Healthcare Proxy: No Guardianship: No Medical Problems Affecting Mental Status: No Interim History: Discussion of Seroquel, uses for Seroquel, risk benefit and SE. Pt discussed a difficult association with Seroquel. If I take it I am psychotic right? Review of the different reasons for use of Seroquel. Pt willing to place these thoughts aside and try it for symptom mgt. Medication Compliance: Yes Side effects from medications: No Attending Groups: Yes Review of Systems Acute medical concerns: No Medical Review of Systems: unchanged Review of Systems Reports behavioral changes Psychiatric: Reports abnormal sleep pattern, Reports anxiety, Reports behavioral changes, Reports depression, Reports anhedonia and Reports suicidal ideation (denies) Mental Status Exam Mental Status Exam Patient Appearance: Appropriate Patient Orientation: Person, Place, Time and Situation Level of Consciousness: Awake and Alert Patient Behavior: Appropriate, Talkative, Cooperative and Good Eye Contact Mood Description: Depressed, Anxious and Labile Affect Description: Depressed, Anxious and Labile Patient Cognition Impaired: No Ability to Follow Directions: Good Speech Pattern: Spontaneous Speech Memory Description: Intact Hallucinations: None Delusions: Not Present Perceptual Disturbances: Depersonalization and Derealization Thought Process: Goal Oriented Thought Content: positive for [place], positive for Circumstantial and positive for Goal Oriented Depressive Symptoms: Increased Anxiety, Hopelessness, Low Self Esteem, Loss of Energy and Difficulty Concentrating Abnormal Motor Activity Signs and Symptoms: Restlessness Judgement: Good Diagnostics Vital Signs (24Hr): Vital Signs - 24 hr 03/23/21 18:00 03/24/21 06:00 Temperature 97.7 F 96.4 F L Pulse Rate 73 79 Respiratory Rate 16 16 Blood Pressure 97/50 L 91/54 L Pulse Oximetry 99 98 Body Mass Index 34.4 Labs Results: 03/21/21 07:17 03/21/21 07:17 Labs: Laboratory Results - last 48 hr 03/21/21 03/23/21 07:17 12:43 Vitamin B12 281 Folate 8.5 Blood Type B Positive Antibody Screen NEGATIVE Antibody Titer TNP Medications Medications Current Medications Generic Name Dose Route Start Last Admin Trade Name Freq PRN Reason Stop Dose Admin Acetaminophen 650 mg 03/19/21 23:57 03/24/21 08:39 Acetaminophen 325 Mg Tablet PO 650 mg Q6H PRN Administration Headache/Pain Mild Scale (1-3) Al Hydroxide/Mg Hydroxide 30 ml 03/19/21 23:57 03/22/21 20:09 Magnesium Hydrox/Alum Hydrox 30 Ml Oral.Susp PO 30 ml Q6H PRN Administration Heartburn/Nausea Aspirin 81 mg 03/24/21 09:00 03/24/21 08:38 Aspirin 81 Mg Tab.Chew PO 81 mg DAILY QING Administration Clonidine HCl 0.1 mg 03/20/21 10:21 03/22/21 14:42 Clonidine Hcl 0.1 Mg Tablet PO 0.1 mg DAILY PRN Administration Anxiety Protocol Cyanocobalamin 1,000 mcg 03/20/21 10:30 03/24/21 08:44 Cyanocobalamin (Vitamin B-12) 1,000 Mcg Tablet PO 1,000 mcg DAILY QING Administration Diphenhydramine HCl 50 mg 03/22/21 22:00 03/23/21 21:05 Diphenhydramine Hcl 25 Mg Tablet PO 50 mg 2200 QING Administration Docusate Sodium 100 mg 03/23/21 21:00 03/24/21 08:37 Docusate Sodium 100 Mg Capsule PO 100 mg BID QING Administration Ergocalciferol 1,250 mcg 03/22/21 09:00 03/22/21 08:36 Ergocalciferol (Vitamin D2) 1,250 Mcg Capsule PO 1,250 mcg Carrasco QING Administration Ferrous Sulfate 324 mg 03/23/21 17:00 03/24/21 15:59 Ferrous Sulfate 324 Mg Tablet. PO 324 mg BIDWM QING Administration Levothyroxine Sodium 125 mcg 03/21/21 06:30 03/24/21 06:21 Levothyroxine Sodium 125 Mcg Tablet PO 125 mcg DAILY@0630 QING Administration Lidocaine 1 patch 03/22/21 09:39 03/24/21 08:40 Lidocaine 4 % Patch Adh..Patch TRANSDERMA 1 patch DAILY PRN Administration back pain Protocol Magnesium Hydroxide 30 ml 03/19/21 23:57 Milk Of Magnesia 30 Ml Oral.Susp PO DAILY PRN Constipation Melatonin 3 mg 03/22/21 22:00 03/23/21 21:05 Melatonin 3 Mg Tablet PO 3 mg 2200 QING Administration Nicotine Polacrilex 2 mg 03/20/21 05:48 03/24/21 15:59 Nicotine Polacrilex 2 Mg Gum BUCCAL 2 mg Q2H PRN Administration Nicotine Cravings Omeprazole 20 mg 03/21/21 06:30 03/24/21 06:21 Omeprazole 20 Mg Capsule. PO 20 mg DAILY@0630 QING Administration Vit/Calcium/Iron/Folic Ac 1 tab 03/21/21 09:00 03/24/21 08:38 Vit27,Calcium/Iron/Fa Tablet PO 1 tab DAILY QING Administration Quetiapine Fumarate 12.5 mg 03/24/21 10:53 03/24/21 11:09 Quetiapine Fumarate 25 Mg Tablet PO 12.5 mg TID PRN Administration anxiety,agitation,sleep, PTSD Sertraline HCl 100 mg 03/21/21 09:00 03/24/21 08:38 Sertraline Hcl 100 Mg Tablet PO 100 mg DAILY QING Administration Trazodone HCl 50 mg 03/19/21 23:57 Trazodone Hcl 50 Mg Tablet PO BEDTIME PRN Insomnia Allergies Allergies Allergy/AdvReac Type Severity Reaction Status Date / Time sulfamethoxazole Allergy Severe Anaphylaxis Verified 03/19/21 23:47 [From Bactrim] trimethoprim [From Bactrim] Allergy Severe Anaphylaxis Verified 03/19/21 23:47 doxycycline Allergy Gastrointestinal Verified 03/19/21 23:47 Upset Assessment & Plan Assessment & Plan (1) PTSD (post-traumatic stress disorder): Status: Acute Code(s): F43.10 - Post-traumatic stress disorder, unspecified Assessment and Plan: 41 yo female, 27 weeks , Celiac Disease, hx of PTSD with recent triggering when in court with DCF. Pt reports sx of anxiety that have not been managable and several psychosocial stressors. Plan: Continue current plan. OB consult completed and appreciated. Collateral contact Discharge planning. (2) : Status: Acute Code(s): Z34.90 - Encounter for supervision of normal , unspecified, unspecified trimester (3) Anemia: Status: Acute Code(s): D64.9 - Anemia, unspecified Assessment and Plan: as noted above. Greater than 50% of the session was spent on counseling and/or coordination of care Patient educated on: medication risk/benefits and therapeutic strategies Informed Consent: understands and further education needed Reason for contiued inpatient stay Substantial Risk for: inability to function and rapid decompensation
[2021-03-24] MEDS: Melatonin 3 MG TABLET PO (20:28)
[2021-03-24] MEDS: diphenhydrAMINE HCL 25 MG TABLET 50 MG PO (20:29)
[2021-03-25 06:00] VITALS: BP 93/54; PULSE 68; RESP 16; TEMP 36.1; O2SAT 99
[2021-03-25] MEDS: Omeprazole 20 MG CAPSULE.DR PO (06:21)
[2021-03-25] MEDS: Levothyroxine Sodium 125 MCG TABLET PO (06:21)
[2021-03-25] MEDS: Nicotine Polacrilex 2 MG GUM BUCCAL ×7 (06:25→20:54)
[2021-03-25] MEDS: Acetaminophen 325 MG TABLET 650 MG PO ×3 (08:35→20:56)
[2021-03-25] MEDS: Docusate Sodium 100 MG CAPSULE PO ×2 (08:36→20:57)
[2021-03-25] MEDS: Ferrous Sulfate 324 MG TABLET.DR PO ×2 (08:36→16:42)
[2021-03-25] MEDS: Aspirin 81 MG TAB.CHEW PO (08:36)
[2021-03-25] MEDS: Sertraline HCL 100 MG TABLET PO (08:36)
[2021-03-25] MEDS: Cyanocobalamin (Vitamin B-12) 1,000 MCG TABLET 1000 MCG PO (08:36)
[2021-03-25 10:37] LABS: Amphetamine Screen Urine Not Detected (Not Detect); Barbiturates, Urine Not Detected (Not Detect); Benzodiazepines Screen Urine Not Detected (Not Detect); Cannabinoid Screen Urine Not Detected (Not Detect); Cocaine Screen Urine Not Detected (Not Detect); Fentanyl, urine Not Detected (Not Detect); Opiate Screen Urine Not Detected (Not Detect); Phencyclidine Screen Urine Not Detected (Not Detect)
[2021-03-25] MEDS: QUEtiapine Fumarate 25 MG TABLET 12.5 MG PO ×2 (10:52→20:54)
--- NOTE | 2021-03-25 13:54 | HO.PSYCHPN ---
Subjective Subjective Date of Service: 03/25/21 Reason For Visit: PTSD Interim History: Older Adult Social Work Specialist covering for patient Patient reports that she has feeling better both physically and emotionally. She denies any SI, HI or AVH. She feels stable and ready for discharge. Patient is going to a program tomorrow which she is looking for to. Patient reports that Seroquel 12.5 mg was a little bit helpful but agrees to marginally increasing dose to 25 mg to see if that makes more difference. Otherwise she has no complaints and no requests other than to have her outpatient psychiatrist Dr. Cerda receive discharge summary. Mental Status Exam Mental Status Exam Narrative: Patient Appearance:?Appropriate Patient Orientation:?Person, Place, Time and Situation Level of Consciousness:?Awake and Alert Patient Behavior:?Appropriate, Cooperative and Good Eye Contact Mood Description:? more stable Affect Description: Euthymic Patient Cognition Impaired:?No Ability to Follow Directions:?Good Speech Pattern:?Spontaneous Speech Memory Description:?Intact Hallucinations:?None Delusions:?Not Present Perceptual Disturbances:? Denies current episodes of Disassociation Thought Process:?Goal Oriented, linear and logical Thought Content:? On treatment and discharge No Abnormal Motor Activity Signs and Symptoms Judgement:? Fair Diagnostics Vital Signs (24Hr): Vital Signs - 24 hr 03/24/21 16:30 03/25/21 06:00 Temperature 97.3 F 96.9 F Pulse Rate 90 68 Respiratory Rate 16 Blood Pressure 104/54 L 93/54 L Pulse Oximetry 99 Body Mass Index 34.4 Labs Results: 03/21/21 07:17 03/21/21 07:17 Labs: Laboratory Results - last 48 hr 03/23/21 03/25/21 12:43 Unknown Urine Opiates Screen Not Detected Urine Fentanyl Screen Not Detected Ur Barbiturates Screen Not Detected Ur Phencyclidine Scrn Not Detected Ur Amphetamines Screen Not Detected U Benzodiazepines Scrn Not Detected Urine Cocaine Screen Not Detected U Marijuana (THC) Screen Not Detected Blood Type B Positive Antibody Screen NEGATIVE Medications Medications Current Medications Generic Name Dose Route Start Last Admin Trade Name Freq PRN Reason Stop Dose Admin Acetaminophen 650 mg 03/19/21 23:57 03/25/21 08:35 Acetaminophen 325 Mg Tablet PO 650 mg Q6H PRN Administration Headache/Pain Mild Scale (1-3) Al Hydroxide/Mg Hydroxide 30 ml 03/19/21 23:57 03/22/21 20:09 Magnesium Hydrox/Alum Hydrox 30 Ml Oral.Susp PO 30 ml Q6H PRN Administration Heartburn/Nausea Aspirin 81 mg 03/24/21 09:00 03/25/21 08:36 Aspirin 81 Mg Tab.Chew PO 81 mg DAILY QING Administration Clonidine HCl 0.1 mg 03/20/21 10:21 03/22/21 14:42 Clonidine Hcl 0.1 Mg Tablet PO 0.1 mg DAILY PRN Administration Anxiety Protocol Cyanocobalamin 1,000 mcg 03/20/21 10:30 03/25/21 08:36 Cyanocobalamin (Vitamin B-12) 1,000 Mcg Tablet PO 1,000 mcg DAILY QING Administration Diphenhydramine HCl 50 mg 03/22/21 22:00 03/24/21 20:29 Diphenhydramine Hcl 25 Mg Tablet PO 50 mg 2200 QING Administration Docusate Sodium 100 mg 03/23/21 21:00 03/25/21 08:36 Docusate Sodium 100 Mg Capsule PO 100 mg BID QING Administration Ergocalciferol 1,250 mcg 03/22/21 09:00 03/22/21 08:36 Ergocalciferol (Vitamin D2) 1,250 Mcg Capsule PO 1,250 mcg [place]rasco QING Administration Ferrous Sulfate 324 mg 03/23/21 17:00 03/25/21 08:36 Ferrous Sulfate 324 Mg Tablet. PO 324 mg BIDWM QING Administration Levothyroxine Sodium 125 mcg 03/21/21 06:30 03/25/21 06:21 Levothyroxine Sodium 125 Mcg Tablet PO 125 mcg DAILY@0630 QING Administration Lidocaine 1 patch 03/22/21 09:39 03/24/21 08:40 Lidocaine 4 % Patch Adh..Patch TRANSDERMA 1 patch DAILY PRN Administration back pain Protocol Magnesium Hydroxide 30 ml 03/19/21 23:57 Milk Of Magnesia 30 Ml Oral.Susp PO DAILY PRN Constipation Melatonin 3 mg 03/22/21 22:00 03/24/21 20:28 Melatonin 3 Mg Tablet PO 3 mg 2200 QING Administration Nicotine Polacrilex 2 mg 03/20/21 05:48 03/25/21 11:36 Nicotine Polacrilex 2 Mg Gum BUCCAL 2 mg Q2H PRN Administration Nicotine Cravings Omeprazole 20 mg 03/21/21 06:30 03/25/21 06:21 Omeprazole 20 Mg Capsule. PO 20 mg DAILY@0630 QING Administration Vit/Calcium/Iron/Folic Ac 1 tab 03/21/21 09:00 03/25/21 08:34 Vit27,Calcium/Iron/Fa Tablet PO 1 tab DAILY QING Administration Quetiapine Fumarate 12.5 mg 03/24/21 10:53 03/25/21 10:52 Quetiapine Fumarate 25 Mg Tablet PO 12.5 mg TID PRN Administration anxiety,agitation,sleep, PTSD Sertraline HCl 100 mg 03/21/21 09:00 03/25/21 08:36 Sertraline Hcl 100 Mg Tablet PO 100 mg DAILY QING Administration Trazodone HCl 50 mg 03/19/21 23:57 Trazodone Hcl 50 Mg Tablet PO BEDTIME PRN Insomnia Allergies Allergies Allergy/AdvReac Type Severity Reaction Status Date / Time sulfamethoxazole Allergy Severe Anaphylaxis Verified 03/19/21 23:47 [From Bactrim] trimethoprim [From Bactrim] Allergy Severe Anaphylaxis Verified 03/19/21 23:47 doxycycline Allergy Gastrointestinal Verified 03/19/21 23:47 Upset Assessment & Plan Assessment & Plan (1) PTSD (post-traumatic stress disorder): Status: Acute Code(s): F43.10 - Post-traumatic stress disorder, unspecified Assessment and Plan: 41 yo female, 27 weeks , Celiac Disease, hx of PTSD with recent triggering when in court with DCF. Pt reports sx of anxiety that have not been managable and several psychosocial stressors. Plan: Continue current plan. OB consult completed and appreciated. Collateral contact Discharge planning. (2) : Status: Acute Code(s): Z34.90 - Encounter for supervision of normal , unspecified, unspecified trimester (3) Anemia: Status: Acute Code(s): D64.9 - Anemia, unspecified Assessment and Plan: 41 yo female, 27 weeks ,? Celiac Disease, hx of PTSD with recent triggering when in court with DCF. Pt reports sx of anxiety that have not been managable and several psychosocial stressors. Plan: Will increase p.r.n. Seroquel to 25 mg for insomnia/anxiety (discussed potential risk to fetus and effort to remain on as low dose as possible; patient agrees with plan) Patient has planned discharge tomorrow 10:00am; she is going to a program which is a supportive environment patient; patient is not in imminent risk for harm to self or others and plan for discharge remains appropriate. Greater than 50% of the session was spent on counseling and/or coordination of care Reason for contiued inpatient stay Substantial Risk for: stable for discharge
[2021-03-25 17:11] VITALS: BP 103/60; PULSE 97; RESP 16; TEMP 36.3; O2SAT 98
[2021-03-25] MEDS: Melatonin 3 MG TABLET PO (20:56)
[2021-03-25] MEDS: diphenhydrAMINE HCL 25 MG TABLET 50 MG PO (20:57)
[2021-03-26] MEDS: Acetaminophen 325 MG TABLET 650 MG PO (03:59)
[2021-03-26] MEDS: Nicotine Polacrilex 2 MG GUM BUCCAL ×2 (03:59→08:33)
[2021-03-26] MEDS: Levothyroxine Sodium 125 MCG TABLET PO (04:33)
[2021-03-26] MEDS: QUEtiapine Fumarate 25 MG TABLET 12.5 MG PO (04:34)
[2021-03-26] MEDS: Omeprazole 20 MG CAPSULE.DR PO (04:34)
[2021-03-26 06:00] VITALS: BP 100/54; PULSE 81; RESP 16; TEMP 35.8; O2SAT 98
[2021-03-26] MEDS: Docusate Sodium 100 MG CAPSULE PO (08:33)
[2021-03-26] MEDS: Aspirin 81 MG TAB.CHEW PO (08:33)
[2021-03-26] MEDS: Cyanocobalamin (Vitamin B-12) 1,000 MCG TABLET 1000 MCG PO (08:33)
[2021-03-26] MEDS: Sertraline HCL 100 MG TABLET PO (08:34)
[2021-03-26] MEDS: Ferrous Sulfate 324 MG TABLET.DR PO (08:34)
--- NOTE | 2021-03-26 13:01 | PM.PSYDC ---
DS: Providers Provider Date of Service: 03/26/21 Date of admission: 03/19/21 21:34 Date of discharge: 03/26/21 Primary care physician: Unknown Physician Admitting clinician: Skyla Bentley Attending physician on admission: Tad Espinoza Consults: 03/20/21 13:49 Consult to Obstetrics / Gynecology Routine Consulting Provider: Jason Mijares Reason for consultation: 27 weeks , admitted with PTSD, anxiety 03/21/21 08:25 Consult to Hospitalist Routine Consulting Provider: Hospitalist Reason For Exam: transfer admit from another facility Attending physician on discharge: Tad Espinoza Discharging clinician: Skyla Bentley DS: Diagnosis Discharge Diagnosis (1) PTSD (post-traumatic stress disorder): Status: Acute (2) : Status: Acute (3) Anemia: Status: Acute DS: Medications Discharge Medications Home Medications: Previous Rx's Medication Instructions Recorded aspirin 81 mg chewable tablet 81 mg PO DAILY 30 Days #30 tab 03/25/21 cyanocobalamin (vitamin B-12) 1,000 mcg PO DAILY 30 Days #30 tab 03/25/21 1,000 mcg tablet docusate sodium 100 mg capsule 100 mg PO BID 30 Days #60 cap 03/25/21 ergocalciferol (vitamin D2) 1,250 1,250 mcg PO QWEEK 30 Days #5 cap 03/25/21 mcg (50,000 unit) capsule folic acid 1 mg tablet 1 mg PO DAILY 30 Days #30 tab 03/25/21 levothyroxine 125 mcg tablet 125 mcg PO DAILY 30 Days #30 tab 03/25/21 lidocaine 4 % topical patch 1 patch TRANSDERMAL DAILY PRN 30 03/25/21 (Lidocaine Pain Relief) Days #30 ea melatonin 3 mg tablet 9 mg PO BEDTIME 30 Days #90 tab 03/25/21 nicotine (polacrilex) 2 mg gum 2 mg PO NEEDED PRN 30 Days #100 03/25/21 ea omeprazole 20 mg capsule,delayed 20 mg PO DAILY 30 Days #30 cap 03/25/21 release vit,calcium 27-ferrous 1 tab PO DAILY 30 Days #30 tab 03/25/21 fum 60 mg iron-folic acid 1 mg tablet (Trinatal Rx 1) quetiapine 25 mg tablet 25 mg PO TID PRN 30 Days #30 tab 03/25/21 sertraline 100 mg tablet 100 mg PO DAILY 30 Days #30 tab 03/25/21 Mental Status Exam Mental Status Exam Narrative: Patient Appearance:?Appropriate Patient Orientation:?Person, Place, Time and Situation Level of Consciousness:?Awake and Alert Patient Behavior:?Appropriate, Cooperative and Good Eye Contact Mood Description:? more stable Affect Description: Euthymic Patient Cognition Impaired:?No Ability to Follow Directions:?Good Speech Pattern:?Spontaneous Speech Memory Description:?Intact Hallucinations:?None Delusions:?Not Present Perceptual Disturbances:? Denies current episodes of Disassociation Thought Process:?Goal Oriented, linear and logical Thought Content:? On treatment and discharge No Abnormal Motor Activity Signs and Symptoms Judgement:? Fair Data Data Completed and Pending Completed studies during hospitalization [Text1]: 03/21/21 03/21/21 03/21/21 07:17 07:17 07:17 WBC 8.0 RBC 2.94 L Hgb 8.7 L Hct 26.7 L MCV 90.8 MCH 29.6 MCHC 32.6 RDW 13.8 Plt Count 182 MPV 9.5 Immature Gran % (Auto) 3.1 H Neut % (Auto) 68.5 Lymph % (Auto) 18.0 L [place] % (Auto) 8.9 Eos % (Auto) 1.1 Baso % (Auto) 0.4 Lymph # (Auto) 1.4 [place] # (Auto) 0.7 Eos # (Auto) 0.1 Baso # (Auto) 0.0 Abs Immat Gran (auto) 0.25 H Absolute Neuts (auto) 5.4 Absolute Nucleated RBC 0.000 Nucleated RBC % (auto) 0.0 Sodium 142 Potassium 3.9 Chloride 112 H Carbon Dioxide 23 Anion Gap 11 L BUN 5 L Creatinine 0.61 Estim Creat Clear Calc 126.4 Estimated GFR > 60 Random Glucose 96 Estimat Average Glucose 97 Hemoglobin A1c % 5.0 Calcium 8.6 Total Bilirubin 0.2 AST 12 ALT 15 Alkaline Phosphatase 83 Total Protein 5.1 L Albumin 3.0 L Triglycerides 227 Cholesterol 249 LDL Cholesterol, Calc 135 HDL Cholesterol 69 Vitamin B12 25-OH Vitamin D Total 11.0 Folate TSH 2.50 Urine Opiates Screen Urine Fentanyl Screen Ur Barbiturates Screen Ur Phencyclidine Scrn Ur Amphetamines Screen U Benzodiazepines Scrn Urine Cocaine Screen U Marijuana (THC) Screen Blood Type Antibody Screen Antibody Titer 03/21/21 03/23/21 03/25/21 07:17 12:43 Unknown WBC RBC Hgb Hct MCV MCH MCHC RDW Plt Count MPV Immature Gran % (Auto) Neut % (Auto) Lymph % (Auto) [place] % (Auto) Eos % (Auto) Baso % (Auto) Lymph # (Auto) [place] # (Auto) Eos # (Auto) Baso # (Auto) Abs Immat Gran (auto) Absolute Neuts (auto) Absolute Nucleated RBC Nucleated RBC % (auto) Sodium Potassium Chloride Carbon Dioxide Anion Gap BUN Creatinine Estim Creat Clear Calc Estimated GFR Random Glucose Estimat Average Glucose Hemoglobin A1c % Calcium Total Bilirubin AST ALT Alkaline Phosphatase Total Protein Albumin Triglycerides Cholesterol LDL Cholesterol, Calc HDL Cholesterol Vitamin B12 281 25-OH Vitamin D Total Folate 8.5 TSH Urine Opiates Screen Not Detected Urine Fentanyl Screen Not Detected Ur Barbiturates Screen Not Detected Ur Phencyclidine Scrn Not Detected Ur Amphetamines Screen Not Detected U Benzodiazepines Scrn Not Detected Urine Cocaine Screen Not Detected U Marijuana (THC) Screen Not Detected Blood Type B Positive Antibody Screen NEGATIVE Antibody Titer TNP DS: Summary Hospital Course Hospital Course: 41 yo female presented for treatment/stabilization of anxiety and PTSD symptoms. She is 28 weeks . 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 Pt was admitted on a conditional voluntary. She worked with nursing and social service teams on issues and in planning her care for discharge. She was see by Dr. Mijares in consultation for which is much appreciated. Medications were titrated. She will return to her out patient team and will do a trial admission with [facility] which her submarine advisory team watch officer approved of. Time spent discussing smoking cessation with patient: 3 to 10 minutes Status at Discharge Cognitive/behavioral status at discharge: Alert, non-suicidal, non-homicidal, non-psychotic, mood is normal, pt is in agreement with plan of care. Functional status at discharge: independent ambulation Overall status at discharge: patient is back to baseline Time Spent with Patient Time attestation: Total time spent providing and/or coordinating discharge services: 45 Time spent: Greater than 30 minutes Discharge Plan Discharge Patient Disposition: Xfer LTC Discharge Diagnosis: PTSD, chronic with dissociative features Referrals: Violet Cerda (psychiatrists) [Other] - 04/29/21 12:00 pm (Psychiatry appointment scheduled for April 29, 2021 @ 12 PM via video will send link to your email.) Ai Deal (therapists) @ [facility] [Other] - 04/06/21 2:00 am (Appointment scheduled for April 06, 2021 @ 2 PM.) Ann Germain (federal submarine advisory team watch officer) [Other] - 03/26/21 12:00 pm (Please call Ann upon arrival to Vis[facility] house to confirm you have arrived safely.) [facility] [Other] - 1 Week (OFFICE WILL CALL US BACK WITH APPOINTMENT OR CALL PATIENT WITH APPOINTMENT DATE.) Court Date Appt [Other] - 03/26/21 4:00 pm Discharge Medications: New aspirin 81 mg Tablet,Chewable 81 mg PO DAILY 30 Days Qty: 30 RF: 0 quetiapine 25 mg Tablet 25 mg PO TID PRN (Reason: anxiety,agitation,sleep, PTSD ) 30 Days Qty: 30 RF: 0 docusate sodium 100 mg Capsule 100 mg PO BID 30 Days Qty: 60 RF: 0 lidocaine [Lidocaine Pain Relief] 4 % Adhesive Patch,Medicated 1 patch transdermal DAILY PRN (Reason: back pain) 30 Days Qty: 30 RF: 0 Trinatal Rx 1 60 mg iron-1 mg Tablet 1 tab PO DAILY 30 Days Qty: 30 RF: 0 Continued nicotine (polacrilex) 2 mg gum 2 mg PO NEEDED PRN (Reason: Smoking Cessation) 30 Days Qty: 100 RF: 0 Changed sertraline 100 mg tablet 100 mg PO DAILY 30 Days Qty: 30 RF: 0 cyanocobalamin (vitamin B-12) 1,000 mcg tablet 1,000 mcg PO DAILY 30 Days Qty: 30 RF: 0 melatonin 3 mg tablet 9 mg PO BEDTIME 30 Days Qty: 90 RF: 0 levothyroxine 125 mcg tablet 125 mcg PO DAILY 30 Days Qty: 30 RF: 0 omeprazole 20 mg capsule,delayed release(DR/EC) 20 mg PO DAILY 30 Days Qty: 30 RF: 0 folic acid 1 mg tablet 1 mg PO DAILY 30 Days Qty: 30 RF: 0 ergocalciferol (vitamin D2) 1,250 mcg (50,000 unit) capsule 1,250 mcg PO QWEEK 30 Days Qty: 5 RF: 0 Discontinued clonidine HCl 0.1 mg tablet 1 tab PO DAILY PRN (Reason: Anxiety) RF: 0 riboflavin (vitamin B2) [Vitamin B-2] 100 mg tablet 2 tab PO BID RF: 0 nystatin 100,000 unit/gram powder 1 unit topical BID RF: 0 Classic 28 mg iron- 800 mcg tablet 1 tab PO DAILY RF: 0 Discharge Orders: Discharge Order (Routine); Ordered 03/26/21 Ordered By: Luke Saunders Diet: regular diet Activity on Discharge: As tolerated Stand Alone Forms: Patient Portal Discharge page Care Plan Goals: Maintain mood and safe behaviors Take medications as prescribed Continue to pursue sobriety Practice coping skills Continue with outpatient providers and reach out to them as needed Health Concerns: Mood stability and behaviors Anemia Plan of Treatment: Follow up with your PCP, PATHOLOGY LAB TECHNICIAN and psychiatric provider regarding above concerns Take medications as prescribed Assessment: Risk assessment at time of discharge:? Patient was interviewed prior to discharge and found to be fully oriented and without any SI or HI. Patient has insight and demonstrates good judgment in terms of wanting to pursue treatment. Patient is not in imminent risk of harm to self or others and has a safety plan that includes presenting to the closest ER or calling 911 if feeling unsafe.? Patient has been observed closely by nursing and unit staff throughout admission; patient has not engaged in any behaviors that suggest dangerousness to self or others and has demonstrated appropriate behaviors and impulse control. Discharge Date/Time: 03/26/21 10:25
== END 2021-03-26 10:25 | DRG 833 ==
PROVIDERS: Admitting Provider Psychiatry & Neurology Psychiatry; Visit Provider Clinical Nurse Specialist Psychiatric/Mental Health, Adult
DX: O99.343 Other mental disorders complicating pregnancy, third trimester (principal); F43.10 Post-traumatic stress disorder, unspecified; O99.613 Diseases of the digestive system complicating pregnancy, third trimester; K90.0 Celiac disease; Z59.0 Homelessness; Z3A.29 29 weeks gestation of pregnancy; O99.013 Anemia complicating pregnancy, third trimester; D64.9 Anemia, unspecified; Z87.891 Personal history of nicotine dependence; Z88.2 Allergy status to sulfonamides; Z79.82 Long term (current) use of aspirin; Z79.890 Hormone replacement therapy; Z79.899 Other long term (current) drug therapy
CPT/HCPCS: 36415; 80053; 80061; 80307; 82306; 82607; 82746; 83036; 84443; 85025; 86850; 86900; 86901; 93005; 97162; Q0163